=== PATIENT | male | born 1990 | race African-American/Black ===

== ENCOUNTER 2018-03-09 12:35 | Emergency (ER) | payer MEDICAID ==
[~2018-03-09] VITALS: Ht 180.3 cm; Wt 105.0 kg
[2018-03-09 12:55] VITALS: BP 141/92
== END 2018-03-09 20:23 | disposition left against medical advice (07) ==
LOC: ER 20:03
DX: Z53.21 Procedure and treatment not carried out due to patient leaving prior to being seen by health care provider (principal)